=== PATIENT | female | born 1950 | race African-American/Black ===

== ENCOUNTER 2018-07-08 15:15 | Emergency (ER) | payer OTHER ==
[~2018-07-08] VITALS: Ht 165.1 cm; Wt 62.0 kg
[2018-07-08 17:30] LABS: BASOPHILS % 0.7 % (0.0-2.0); EOSINOPHILS % 0.6 % (0.0-5.0); HEMATOCRIT. 40.1 % (36.0-48.0); HEMOGLOBIN. 13.1 g/dL (12.0-16.0); LYMPHOCYTES % 14.4 % (20.0-50.0); MEAN CORPUSCULAR HEMOGLOBIN 29.8 pg (28.0-32.0); MEAN PLATELET VOLUME 8.7 fl (7.4-10.4); MONOCYTES % 9.5 % (2.0-8.0); NEUTROPHILS % 74.8 % (40.0-76.0); PLATELET 200 x1000/uL (130-400); RED CELL DISTRIBUTION WIDTH 14.4 % (11.6-14.6)
[2018-07-08 17:31] LABS: CHLORIDE 108 mEq/L (98-107)
[2018-07-08 17:32] LABS: PROTHROMBIN TIME 10.5 sec (9.6-11.0)
[2018-07-08 17:40] LABS: T4 FREE 1.25 ng/dL (0.76-1.46)
[2018-07-08 22:25] VITALS: BP 106/65
== END 2018-07-08 22:29 | disposition home or self-care (01) ==
LOC: ER 15:15
DX: R55 Syncope and collapse (principal); I10 Essential (primary) hypertension; E87.6 Hypokalemia; E03.9 Hypothyroidism, unspecified
CPT/HCPCS: 36415; 71045; 84439; 84443; 84484; 93005; 99284